=== PATIENT | male | born 1995 | race African-American/Black ===

== ENCOUNTER 2022-01-22 15:14 | Emergency (ER) | payer SELFPAY ==
[~2022-01-22] VITALS: Ht 177.8 cm; Wt 77.6 kg
[2022-01-22 15:20] VITALS: BP 102/52
== END 2022-01-22 23:15 | disposition left against medical advice (07) ==
LOC: ER 15:23
DX: Z53.21 Procedure and treatment not carried out due to patient leaving prior to being seen by health care provider (principal); R20.0 Anesthesia of skin
CPT/HCPCS: 82962

== ENCOUNTER 2022-12-31 11:37 | Emergency (ER) | payer SELFPAY ==
[~2022-12-31] VITALS: Ht 170.2 cm; Wt 86.2 kg
[2022-12-31 11:50] VITALS: BP 106/50; PULSE 58; RESP 18; TEMP 98.6; O2SAT 100
[2022-12-31] MEDS ORDERED: LIDOCAINE HCL 1% 20ML VIAL (Pyxis) INJ INFIL ONE (12:45)
[2022-12-31] MEDS ORDERED: POVIDONE-IODINE 10% TOPICAL SOLN 240ML TOP ONE (12:45)
[2022-12-31] MEDS ORDERED: LIDOCAINE HCL 1% 20ML VIAL (Pyxis) INJ INFIL NR (15:15)
[2022-12-31] MEDS ORDERED: AMOX1TAB16 MT (15:30)
== END 2022-12-31 16:17 | disposition home or self-care (01) ==
LOC: ER 12:28
DX: L03.012 Cellulitis of left finger (principal)
CPT/HCPCS: 73140; 10060; 99283; J3490; Z7610